=== PATIENT | male | born 1975 ===

== ENCOUNTER 2018-10-05 06:32 | Day surgery (SDC) | payer BC, OTHER ==
[2018-10-05] MEDS ORDERED: IRON SUCROSE INJECTION 200 MG in SODIUM CHLORIDE 100 ML IVPB ONE (09:00)
[2018-10-05 16:24] VITALS: TEMP 98.6
[2018-10-05 16:29] VITALS: BP 125/88; PULSE 65
== END 2018-10-05 15:30 | disposition home or self-care (01) ==
LOC: JONCCHEMO 06:32 → J7W 13:49 → JONCCHEMO 15:30
PROVIDERS: ATTEND Internal Medicine Hematology & Oncology
PROC: 3E033GC Introduction of Other Therapeutic Substance into Peripheral Vein, Percutaneous Approach (ICD-10-PCS; principal; 2018-10-05)
DX: D50.9 Iron deficiency anemia, unspecified (principal)
CPT/HCPCS: 96365; J1756